=== PATIENT | female | born 1945 | race Caucasian/White ===

== ENCOUNTER 2019-05-04 07:24 | Day surgery (SDC) ==
--- NOTE | 2019-04-29 17:16 | EKG Report ---
Test Performed on : 04/29/2019 4:55:17 PM Test Reason : PAT Blood Pressure : / mmHG Vent. Rate : 078 BPM Atrial Rate : 078 BPM P-R Int : 144 ms QRS Dur : 070 ms QT Int : 372 ms P-R-T Axes : -02 015 030 degrees QTc Int : 424 ms Normal sinus rhythm. Nonspecific ST and T wave abnormality Abnormal ECG When compared with ECG of 18-APR-2015 23:16, No significant change was found Confirmed by Juarez Hudson MD ([id number]) on 04/30/2019 9:00:42 AM
[2019-04-29 17:28] LABS: URINE SOURCE CLEAN CATCH
[2019-04-29 17:34] LABS: BASO# 0.03 X1000 (0.0-0.2); BASO% 0.4 % (0.0-0.8); EOS# 0.11 X1000 (0.0-0.7); EOS% 1.6 % (0.0-10.0); HEMATOCRIT 40.6 % (37.0-47.0); HEMOGLOBIN 13.1 g/dL (12.0-16.0); IMM GRAN# 0.02 X1000 (0.0-0.04); IMM GRAN% 0.3 % (0.0-0.5); LYMPH# 2.33 X1000 (1.2-3.4); LYMPH% 34.3 % (20.5-51.1); MCH 29.7 PG (27-31); MCHC 32.3 g/dL (33-37); MCV 92.1 FL (81-99); MONO# 0.61 X1000 (0.11-0.59); MPV 9.9 FL (7.4-10.4); NEUT# 3.69 X1000 (1.4-6.5); NEUT% 54.4 % (42.2-75.2); PLT 232 X1000 (130-400); RBC 4.41 XMIL (4.2-5.4); RDW 13.1 % (11.5-14.5); WBC 6.79 X1000 (4.8-10.8)
[2019-04-29 17:37] LABS: INR 1.1; PROTIME 14.4 Seconds (11.0-16.0)
[2019-04-29 17:38] LABS: PTT 30.5 Seconds (22.3-41.8)
[2019-04-29 17:42] LABS: BILIRUBIN URINE NEGATIVE (NEGATIVE); BLOOD URINE NEGATIVE (NEGATIVE); COLOR YELLOW; GLUCOSE URINE NEGATIVE (NEGATIVE); KETONE URINE NEGATIVE (NEGATIVE); LEUKOCYTES URINE LARGE (NEGATIVE); NITRITE URINE NEGATIVE (NEGATIVE); PROTEIN URINE NEGATIVE (NEGATIVE); SP GRAVITY URINE 1.029; TURBIDITY URINE CLEAR (CLEAR); UR EPITHELIAL CELLS <10 /HPF (<10); URINE BACTERIA NEGATIVE /HPF; URINE RBC <10 /HPF (<10); URINE WBC TNTC /HPF (<10); UROBILINOGEN URINE NORMAL (NORMAL)
[2019-04-29 17:48] LABS: HEMOGLOBIN A1C 5.3 % (4.8-6.0)
[2019-04-29 18:02] LABS: AGAP 11; ALBUMIN 4.3 g/dL (3.5-5.0); BUN 28 mg/dL (8-22); CALCIUM 9.7 mg/dL (8.8-10.2); CHLORIDE 103 mmol/L (98-107); COSMO 285; CREATININE 0.8 mg/dL (0.5-0.9); ESTIMATED GFR > 60; GLUCOSE 97 mg/dL (70-104); POTASSIUM 4.4 mmol/L (3.5-5.1); SODIUM 140 mmol/L (136-145); TCO2 26 mmol/L (25-35)
[2019-05-04] MEDS ORDERED: DURAMORPH ONE (07:58)
[2019-05-04] MEDS ORDERED: TORADOL ONE (07:58)
[2019-05-04] MEDS ORDERED: VANCOMYCIN ONE (07:58)
[2019-05-04] MEDS ORDERED: MARCAINE 0.25% PF ONE (07:58)
[2019-05-04] MEDS ORDERED: SODIUM CHLORIDE 0.9% ONE (07:59)
[2019-05-04] MEDS ORDERED: CYKLOKAPRON 1,000 MG/NS 1,000 MG/100 ML IVPB ONE ×2 (07:59→08:00)
[2019-05-04] MEDS ORDERED: EXPAREL 1.3% ONE (07:59)
[2019-05-04] MEDS ORDERED: REGLAN ONE (08:30)
[2019-05-04] MEDS ORDERED: PEPCID ONE (08:30)
[2019-05-04] MEDS ORDERED: KEFZOL 1 GM/D5W 2 GM/100 ML IVPB ONE (08:30)
[2019-05-04] MEDS ORDERED: LYRICA ONE (08:30)
[2019-05-04] MEDS ORDERED: COLACE ONE (08:30)
[2019-05-04] MEDS ORDERED: CELEBREX ONE (08:30)
[2019-05-04] MEDS ORDERED: LR 1,000 ML ONE (08:30)
[2019-05-04] MEDS ORDERED: DIPRIVAN 1% 500 MG/50 ML BOTTLE ONE (08:37)
[2019-05-04] MEDS ORDERED: VERSED ONE (08:41)
[2019-05-04] MEDS ORDERED: FENTANYL ONE (09:13)
[2019-05-04] MEDS ORDERED: NEO-SYNEPHRINE ONE (09:41)
[2019-05-04 10:09] LABS: URINE SOURCE CATH
[2019-05-04 10:28] LABS: BILIRUBIN URINE NEGATIVE (NEGATIVE); BLOOD URINE NEGATIVE (NEGATIVE); COLOR YELLOW; GLUCOSE URINE NEGATIVE (NEGATIVE); KETONE URINE NEGATIVE (NEGATIVE); LEUKOCYTES URINE NEGATIVE (NEGATIVE); NITRITE URINE NEGATIVE (NEGATIVE); PH URINE 6.5; PROTEIN URINE NEGATIVE (NEGATIVE); SP GRAVITY URINE 1.021; TURBIDITY URINE CLEAR (CLEAR); UROBILINOGEN URINE 2 mg/dL (NORMAL)
[2019-05-04 10:29] LABS: UR EPITHELIAL CELLS <10 /HPF (<10); URINE BACTERIA NEGATIVE /HPF; URINE RBC <10 /HPF (<10); URINE WBC <10 /HPF (<10)
[2019-05-04] MEDS ORDERED: EPHEDRINE ONE (10:31)
[2019-05-04] MEDS ORDERED: DECADRON ONE (10:46)
[2019-05-04] MEDS ORDERED: ZOFRAN ONE (10:46)
[2019-05-04] MEDS ORDERED: OFIRMEV 1000 MG/ISOTONIC SOLN 1,000 MG/100 ML BOTTLE ONE (10:46)
[2019-05-04] MEDS ORDERED: MORPHINE IV PRN ×3 (11:30)
[2019-05-04] MEDS ORDERED: MILK OF MAGNESIA PO PRN (11:30)
[2019-05-04] MEDS ORDERED: ZOFRAN IV PRN (11:30)
[2019-05-04] MEDS ORDERED: OXY IR PO PRN ×2 (11:30)
[2019-05-04] MEDS ORDERED: ZOFRAN ODT PO PRN (11:30)
[2019-05-04] MEDS ORDERED: NS 1,000 ML ONE (12:00)
--- NOTE | 2019-05-04 13:21 | OPERATIVE NOTE ---
PROCEDURE DATE: 05/04/2019 PREOPERATIVE DIAGNOSIS: Right knee degenerative joint disease. POSTOPERATIVE DIAGNOSIS: Right knee degenerative joint disease. PROCEDURE PERFORMED: Right total knee arthroplasty using a [employer] size 5 femoral component, a size 5 tibial base plate, a 10 mm articular insert, and a size 6 femoral component, a size 5 tibial base plate. A 10 mm articular insert and a 35 mm patellar component. ANESTHESIA: Spinal. SURGEON: Cirilo Cortés MD. SUPERVISOR [employer]MENT: Jj Sarabia. COMPLICATIONS: None. BLOOD LOSS: Minimal. TOURNIQUET TIME: Approximately 1 hour. DESCRIPTION OF PROCEDURE: The patient was brought to the operative suite and placed in supine position after successful administration of spinal anesthesia. A well-padded tourniquet was placed on the right proximal thigh and the right lower extremity was prepped and draped in the usual sterile fashion. A longitudinal incision was made at the beginning of the superior pole patella and extended distally to the tibia tuberosity, dissected sharply through the skin and then the medial arthrotomy was made. The medial capsule was elevated off the medial tibial plateau. The ACL, PCL, medial meniscus, lateral meniscus were excised. A drill was then in the distal femur. Intramedullary guide was placed. This cutting block was pinned in place and cuts made with oscillating saw. Marginal osteophytes removed with rongeur. Attention was directed to the tibia. A drill was entered in the tibia. Intramedullary guide was placed. The line was checked with drop essie referencing off the anterior cortex tibia and the second ray of the foot and taking 4 mm off the low side the tibia which in this case was medially. The tibial cutting block was pinned in place. The articular surface tibial plateau was removed with oscillating saw. Marginal osteophytes removed with rongeur. Extension gap was checked and balanced at 10 mm. The flexion gap was set to 19 mm and once the rotation was properly set the femur was sized to a size 6. Size 6 cutting block was pinned in place and the anterior cuts, chamfer cuts, and posterior condylar cuts were made with the oscillating saw. Marginal osteophytes removed with a rongeur. Attention was directed to the tibia. The tibia sized to a size 5. A size 5 guide was used for the pin punch. The box cutting block was pinned in place on the femur. A box cut was made a box osteotome and oscillating saw. Posterior condyle osteophytes removed with the curved osteotome and rongeur, femoral trial was placed and then 2 mm arch insert was placed and taken through range of motion and found have excellent alignment, balancing, range of motion, 9 mm of the articular surface of the patella was removed with oscillating saw. Patella sized to size 35. A size 35 guide was used to drill peg holes, lateral facet was chamfered 30 to 45 degrees. Patella trial was placed and taken through range of motion found have excellent patella tracking. All trials were then removed. The knee was copiously irrigated and dried, being certain all bone debris was removed. The tibial component, femoral component, and patellar component were cemented in place. Excess cement removed with a [place]. Once the cement hardened excess cement was again removed with the osteotome. The knee was again copiously irrigated and dried, being certain all bone debris was removed. The trial articular insert was removed. The knee was copiously infiltrated with Exparel, including posterior capsule, anterior capsule, medial and lateral collateral ligaments, anterior musculature, and subcutaneous tissue. The drain was deflated. Hemostasis was obtained with electrocautery. The definitive 10 mm articular insert was locked into place. The medial arthrotomy was closed with a V-Loc. The skin approximated with 2-0 Vicryl skin was closed with Prineo and a sterile dressing was applied. The patient tolerated the procedure well without complication. At the end the procedure, all counts correct x2. The patient was transferred to the recovery room in stable condition. cc: Cirilo Cortés MD [facility]
[2019-05-04] MEDS ORDERED: NITROGLYCERIN SL PRN (16:29)
[2019-05-04] MEDS: TYLENOL PO SCH ×2 (16:32→21:25)
[2019-05-04] MEDS: KEFZOL 2 GM/D5W 2 GM/50 ML IVPB IV SCH (16:32)
[2019-05-04] MEDS: ULTRAM PO SCH ×2 (16:32→21:26)
[2019-05-04] MEDS: NS 1,000 ML IV SCH (16:37)
[2019-05-04] MEDS ORDERED: LIPITOR PO SCH (21:00)
[2019-05-04] MEDS: PERIDEX MT SCH (21:25)
[2019-05-04] MEDS: CELEBREX PO SCH (21:25)
[2019-05-04] MEDS: COLACE PO SCH (21:26)
[2019-05-04] MEDS: COREG PO SCH (21:26)
[2019-05-04] MEDS: LYRICA PO SCH (21:26)
[2019-05-05] MEDS: KEFZOL 2 GM/D5W 2 GM/50 ML IVPB IV SCH (00:51)
[2019-05-05] MEDS: NS 1,000 ML IV SCH (00:51)
[2019-05-05] MEDS: TYLENOL PO SCH ×2 (03:18→10:16)
[2019-05-05] MEDS: ULTRAM PO SCH ×2 (03:19→10:16)
[2019-05-05 06:05] LABS: HEMATOCRIT 33.5 % (37.0-47.0)
[2019-05-05 06:35] LABS: AGAP 11; BUN 24 mg/dL (8-22); CHLORIDE 105 mmol/L (98-107); COSMO 283; CREATININE 0.9 mg/dL (0.5-0.9); ESTIMATED GFR > 60; GLUCOSE 131 mg/dL (70-104); POTASSIUM 4.5 mmol/L (3.5-5.1); SODIUM 139 mmol/L (136-145); TCO2 23 mmol/L (25-35)
[2019-05-05 07:23] VITALS: BP 133/71
[2019-05-05] MEDS ORDERED: SALINE LOCK IV FLUID XX ONE (08:39)
[2019-05-05] MEDS ORDERED: CENTRUM SILVER PO SCH (09:00)
[2019-05-05] MEDS ORDERED: CELEXA PO SCH (09:00)
[2019-05-05] MEDS ORDERED: ASPIRIN PO SCH (09:00)
[2019-05-05] MEDS ORDERED: CLARITIN PO SCH (09:00)
[2019-05-05] MEDS ORDERED: TYLENOL ARTHRITIS PO SCH (09:00)
[2019-05-05] MEDS ORDERED: COZAAR PO SCH (09:00)
[2019-05-05] MEDS ORDERED: DECADRON IV ONE (09:00)
[2019-05-05] MEDS ORDERED: PRILOSEC PO SCH (09:00)
[2019-05-05] MEDS: CELEBREX PO SCH (10:16)
[2019-05-05] MEDS: COLACE PO SCH (10:16)
[2019-05-05] MEDS: COREG PO SCH (10:17)
[2019-05-05] MEDS: PERIDEX MT SCH (10:18)
[2019-05-05] MEDS: LYRICA PO SCH (10:18)
--- NOTE | 2019-05-05 13:40 | DISCHARGE SUMMARY ---
ADMISSION DATE: 05/04/2019 DISCHARGE DATE: 05/05/2019 DISCHARGE DIAGNOSIS: Right knee degenerative joint disease status post right total knee arthroplasty. DISCHARGE MEDICATIONS: See discharge medication list. DISPOSITION: The patient was discharged home with home health physical therapy. Instructed to return for any signs or symptoms of infection or deep venous thrombosis, Instructed to return to see Dr. Cortés next . HOSPITAL COURSE: On the day of admission, patient underwent a right total knee arthroplasty. Her postoperative course was unremarkable. At discharge, she is afebrile, tolerating a regular diet, ambulating well with physical therapy. Her wound is clean, dry, intact without sign of infection. Her hematocrit is 11. Her hemoglobin is 33.5. She is discharged to home in stable condition, instructed to follow up as described above. cc: Cirilo Cortés MD MTDD
[2019-05-05] MEDS ORDERED: COUMADIN PO SCH (21:00)
== END 2019-05-05 11:26 | disposition home health service (06) ==
LOC: 4N 07:24 → OR 07:24
PROVIDERS: ATTEND Orthopaedic Surgery